=== PATIENT | female | born 1940 | race Caucasian/White ===

== ENCOUNTER → 2016-06-28 | Outpatient (CLI) | payer MEDICARE | LOC: KOH-I 15:54 | DX: M54.2 Cervicalgia (principal); R20.2 Paresthesia of skin; M47.812 Spondylosis without myelopathy or radiculopathy, cervical region | CPT/HCPCS: 72050 ==

== ENCOUNTER → 2016-07-17 | Outpatient (CLI) | payer MEDICARE | LOC: MRI 13:00 | DX: R42 Dizziness and giddiness (principal); I65.22 Occlusion and stenosis of left carotid artery; R93.7 Abnormal findings on diagnostic imaging of other parts of musculoskeletal system; M50.322 Other cervical disc degeneration at C5-C6 level; M50.323 Other cervical disc degeneration at C6-C7 level; I65.23 Occlusion and stenosis of bilateral carotid arteries | CPT/HCPCS: 72141; 93880 ==

== ENCOUNTER → 2020-03-17 | Outpatient (CLI) | payer MEDICARE ==
[~2020-03-17] MED LIST: OMNICEF 300 MG300 MG PO; ZOFRAN4 MG PO
== END ==
LOC: MAMO 09-08 11:00
DX: Z12.31 Encounter for screening mammogram for malignant neoplasm of breast (principal)
CPT/HCPCS: 77063; 77067

== ENCOUNTER → 2020-05-12 | Outpatient (CLI) | payer MEDICARE, SELFPAY | LOC: MAMO 04-20 14:00 → US 04-20 14:30 → MAMO 10:49 | DX: R92.8 Other abnormal and inconclusive findings on diagnostic imaging of breast (principal) | CPT/HCPCS: 76641-RT; 77065; G0279 ==

== ENCOUNTER 2020-09-10 20:30 | Emergency (ER) | payer MEDICARE, SELFPAY ==
[2020-09-11 00:10] LABS: BUN/CREATININE RATIO 27 (0-10)
[2020-09-11 00:25] LABS: HEMOGLOBIN 11.9 gm/dl (12.3-15.3); RED BLOOD COUNT 3.81 M/UL (4.00-5.10); WHITE BLOOD COUNT 12.4 K/UL (4.5-11.0)
[2020-09-11] MEDS ORDERED: ZOFRAN4 MG PO (01:30)
[2020-09-11] MEDS ORDERED: OMNICEF 300 MG300 MG PO (01:30)
== END 2020-09-11 01:40 | disposition home or self-care (01) ==
LOC: ER1 20:30
PROVIDERS: Physician Assistant Medical
DX: N39.0 Urinary tract infection, site not specified (principal); E78.5 Hyperlipidemia, unspecified; E11.9 Type 2 diabetes mellitus without complications; I10 Essential (primary) hypertension; Z90.710 Acquired absence of both cervix and uterus; Z88.1 Allergy status to other antibiotic agents; Z91.040 Latex allergy status
CPT/HCPCS: 80053; 81001; 85025; 86850; 86900; 86901; 96374; 99283; J0696

== ENCOUNTER → 2020-09-14 | Outpatient (CLI) | payer MEDICARE, SELFPAY | LOC: KOH-I 13:46 | DX: R06.02 Shortness of breath (principal); I51.7 Cardiomegaly | CPT/HCPCS: 71046 ==

== ENCOUNTER → 2020-10-04 | Outpatient (CLI) | payer MEDICARE, OTHER | LOC: ECHO 10:59 | DX: I48.91 Unspecified atrial fibrillation (principal); I50.9 Heart failure, unspecified; I51.7 Cardiomegaly | CPT/HCPCS: ECHO; 93306 ==

== ENCOUNTER → 2021-01-10 | Outpatient (CLI) | payer MEDICARE | LOC: MAMO 11-10 11:00 | DX: R92.8 Other abnormal and inconclusive findings on diagnostic imaging of breast (principal) | CPT/HCPCS: 77065; G0279 ==

== ENCOUNTER → 2021-02-07 | Outpatient (CLI) | payer MEDICARE ==
[~2021-02-07] VITALS: Ht 172.7 cm; Wt 90.7 kg
== END ==
LOC: EROP 10:49
DX: U07.1 COVID-19 (principal)
CPT/HCPCS: 96365

== ENCOUNTER → 2021-05-04 | Outpatient (CLI) | payer MEDICARE | LOC: MAMO 12:36 | DX: Z12.31 Encounter for screening mammogram for malignant neoplasm of breast (principal) | CPT/HCPCS: 77063; 77067 ==

== ENCOUNTER 2021-09-03 21:41 | Emergency (ER) | payer MEDICARE | END 2021-09-04 02:23 | disposition home or self-care (01) | LOC: ER1 21:41 | DX: M25.512 Pain in left shoulder (principal); I11.9 Hypertensive heart disease without heart failure; E11.9 Type 2 diabetes mellitus without complications; Z88.1 Allergy status to other antibiotic agents; W19.XXXA Unspecified fall, initial encounter; Y92.009 Unspecified place in unspecified non-institutional (private) residence as the place of occurrence of the external cause | CPT/HCPCS: 73030; 93005; 99283 ==

== ENCOUNTER 2021-09-05 21:13 | Emergency (ER) | payer MEDICARE ==
[2021-09-06 00:19] LABS: HEMOGLOBIN 12.8 gm/dl (12.3-15.3); RED BLOOD COUNT 4.04 M/UL (4.00-5.10); WHITE BLOOD COUNT 9.4 K/UL (4.5-11.0)
[2021-09-06 00:34] LABS: BUN/CREATININE RATIO 25 (0-10)
[2021-09-06] MEDS ORDERED: ONDANSETRON ODT4 MG SL (01:30)
[2021-09-06] MEDS ORDERED: OMNICEF 300 MG300 MG PO (01:30)
== END 2021-09-06 02:15 | disposition home or self-care (01) ==
LOC: ER1 21:13
PROVIDERS: Physician Assistant
DX: M25.512 Pain in left shoulder (principal); R53.1 Weakness; R10.9 Unspecified abdominal pain; R11.2 Nausea with vomiting, unspecified; J18.9 Pneumonia, unspecified organism; E87.1 Hypo-osmolality and hyponatremia; I10 Essential (primary) hypertension; E11.9 Type 2 diabetes mellitus without complications; Z20.822 Contact with and (suspected) exposure to COVID-19; E78.5 Hyperlipidemia, unspecified; Z88.1 Allergy status to other antibiotic agents; W19.XXXA Unspecified fall, initial encounter; Y92.009 Unspecified place in unspecified non-institutional (private) residence as the place of occurrence of the external cause
CPT/HCPCS: 0240U; 71045; 80053; 82550; 82553; 84484; 85025; 93005; 96361; 96374; 99284; J0696

== ENCOUNTER → 2021-11-18 | Outpatient (CLI) | payer MEDICARE ==
[~2021-11-18] MED LIST changes: +ONDANSETRON ODT4 MG SL
== END ==
LOC: LAB 10:28
PROVIDERS: Physician Assistant
DX: R60.9 Edema, unspecified (principal); R09.89 Other specified symptoms and signs involving the circulatory and respiratory systems; J90 Pleural effusion, not elsewhere classified; J98.11 Atelectasis
CPT/HCPCS: 36415; 71046; 80048